=== PATIENT | male | born 1960 | race Hispanic/Latino ===

== ENCOUNTER 2019-09-25 11:23 | Emergency (ER) | payer OTHER, BC ==
[~2019-09-25] VITALS: Ht 160 cm; Wt 81.7 kg
--- OUTSIDE RECORDS SUMMARY | 2019-09-25 11:28 | XMS ---
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 E.D. VISIT COUNT (12 MO.) 2 [facility] [address] TOTAL 7 NOTE: Visits indicate total known visits. ED/UCC VISIT TRACKING (12 MO.) 09/25/2019 11:23 [facility]MEL[facility] Vazquez TYPE: Emergency COMPLAINT: - HIGH BLOOD PRESSURE 09/07/2019 12:06 [facility] TYPE: Emergency DIAGNOSES: - Chest Pain - Elevated blood-pressure reading, w/o diagnosis of htn - Chest pain, unspecified - Alcohol abuse, uncomplicated 09/07/2019 01:08 [facility] [place] TYPE: Emergency DIAGNOSES: - Chest pain, unspecified - Hyperglycemia, unspecified - Essential (primary) hypertension - drunk, chest pain, hypertension 08/07/2019 05:18 [facility] TYPE: Emergency COMPLAINT: - CHEST PAIN HIGH BLOOD PRESSURE - CHEST PAIN UNSPECIFIED DIAGNOSES: 0. Chest pain, unspecified 1. Other chest pain 3. Alcohol dependence with withdrawal, unspecified 4. Essential (primary) hypertension 5. Hyperlipidemia, unspecified 06/23/2019 12:03 [facility] TYPE: Emergency DIAGNOSES: - 1 Type 2 diabetes mellitus with hyperglycemia - Chest pain, unspecified - Essential (primary) hypertension - Chest Pain 04/03/2019 04:09 [facility] TYPE: Emergency COMPLAINT: - CHEST TIGHTNESS, POSSIBLE BLOOD PRESSURE ISSUE 12/06/2018 05:27 [facility] [place] TYPE: Emergency DIAGNOSES: - Essential (primary) hypertension - HIGH BLOOD PRESSURE CHEST PAIN - Epigastric pain INPATIENT VISIT TRACKING (12 MO.) No inpatient visits to display in this time frame [id number]
[2019-09-25] MEDS ORDERED: METFORMIN HCL500 MG PO (11:48)
[2019-09-25] MEDS ORDERED: LISINOPRIL20 MG PO (11:48)
[2019-09-25] MEDS ORDERED: ATORVASTATIN CA40 MG PO (11:49)
[2019-09-25] MEDS ORDERED: CHLORDIAZEPOXIDE5 MG PO (11:49)
[2019-09-25] MEDS ORDERED: TRIAMTERENE-HC1 EAC1 PO (11:49)
[2019-09-25] MEDS ORDERED: FOLIC ACID1 MG PO (11:49)
== END 2019-09-25 14:27 | disposition home or self-care (01) ==
LOC: ED 11:23
DX: F10.229 Alcohol dependence with intoxication, unspecified (principal); I10 Essential (primary) hypertension; Z79.899 Other long term (current) drug therapy
CPT/HCPCS: 36415; 80053; 85025; 99284; G0480